=== PATIENT | female | born 1975 | race Caucasian/White ===

== ENCOUNTER 2018-04-09 17:05 | Emergency (ER) | payer OTHER ==
[~2018-04-09] VITALS: Ht 175.3 cm; Wt 59.0 kg
[~2018-04-09 17:05] MED LIST: ALBU4 PO; LORA.5 PO; PANT40 PO; TRAZ100 PO
[2018-04-09] MEDS ORDERED: Keflex500 MG PO (19:49)
[2018-04-09] MEDS ORDERED: Norco 5-325 Ta1 EACH PO (19:49)
== END 2018-04-09 21:10 | disposition home or self-care (01) ==
LOC: ER 17:05
DX: S61.224A Laceration with foreign body of right ring finger without damage to nail, initial encounter (principal); S61.511A Laceration without foreign body of right wrist, initial encounter; Z79.899 Other long term (current) drug therapy; Z88.8 Allergy status to other drugs, medicaments and biological substances; K21.9 Gastro-esophageal reflux disease without esophagitis; J45.909 Unspecified asthma, uncomplicated; F41.9 Anxiety disorder, unspecified; F17.200 Nicotine dependence, unspecified, uncomplicated; W25.XXXA Contact with sharp glass, initial encounter
CPT/HCPCS: 12001; 73130; 90471; 90714; 96372; 99283; J0696

== ENCOUNTER 2018-08-14 08:11 | Emergency (ER) | payer OTHER ==
[~2018-08-14] VITALS: Ht 175.3 cm; Wt 54.4 kg
[~2018-08-14 08:11] MED LIST changes: +Keflex500 MG PO; +Norco 5-325 Ta1 EACH PO
[2018-08-14 09:02] LABS: BASOPHILS ABSOLUTE AUTO 0.04 K/mm3 (0.00-0.23); BASOPHILS PERCENT AUTO 1 % (0-2); EOSINOPHILS PERCENT AUTO 1 % (0-6); Hematocrit 40.6 % (33.0-51.0); Hemoglobin 13.2 g/dL (11.5-16.0); IMMATURE GRAN ABSOLUTE AUTO 0.01 K/mm3 (0.00-0.10); IMMATURE GRAN PERCENT AUTO 0 % (0-1); LYMPHOCYTES ABSOLUTE AUTO 2.51 K/mm3 (0.84-5.20); LYMPHOCYTES PERCENT AUTO 36 % (21-46); MONOCYTES ABSOLUTE AUTO 0.53 K/mm3 (0.16-1.47); MONOCYTES PERCENT AUTO 8 % (4-13); Mean Corpuscular HGB 32.7 pg (26.0-34.0); Mean Corpuscular HGB Conc 32.5 g/dL (31.5-36.5); Mean Corpuscular Volume 101 fL (80-100); NEUTROPHILS ABSOLUTE AUTO 3.75 K/mm3 (1.96-9.15); NEUTROPHILS PERCENT AUTO 54 % (41-73); RDW Coefficient Variation 11.7 % (11.7-14.2); RDW Standard Deviation 43.8 fL (35.1-46.3); Red Blood Cell Count 4.04 M/mm3 (3.80-5.20); White Blood Cell Count 6.94 K/mm3 (4.00-11.30)
[2018-08-14 09:11] LABS: Mean Platelet Volume 10.7 fL (9.1-12.4); Platelet Count 155 K/mm3 (150-400)
[2018-08-14 09:21] LABS: Alanine Aminotransfer (ALT/SGP 26 U/L (12-78); Albumin, Blood 3.8 g/dL (3.4-5.0); Albumin/Globulin Ratio 1.2 (0.8-1.8); Alk Phos 49 U/L (50-136); Anion Gap 9 mmol/L (6-16); Aspartate Aminotrans (AST/SGOT 21 U/L (12-37); Bilirubin, Total 0.5 mg/dL (0.1-1.0); Blood Urea Nitrogen 11 mg/dL (8-24); Bun/Creatinine Ratio 16.6 (12.0-20.0); CO2, Blood 26 mmol/L (21-32); Calcium, Blood 8.8 mg/dL (8.5-10.1); Chloride, Blood 104 mmol/L (98-108); Creatinine, Blood 0.66 mg/dL (0.40-1.00); Globulin, Blood 3.3 g/dL (2.2-4.0); Glomerular Filtration Rate >60 (60-); Glucose, Blood 78 mg/dL (70-99); Sodium, Blood 139 mmol/L (136-145); Total Protein, Blood 7.1 g/dL (6.4-8.2)
[2018-08-14] MEDS ORDERED: Ultram50 MG PO (10:18)
[2018-08-14] MEDS ORDERED: Norco 5-325 Ta1 EACH PO (10:29)
== END 2018-08-14 10:32 | disposition home or self-care (01) ==
LOC: ER 08:11
PROVIDERS: Emergency Medicine
DX: K21.9 Gastro-esophageal reflux disease without esophagitis (principal); R10.13 Epigastric pain; F17.200 Nicotine dependence, unspecified, uncomplicated; Z79.899 Other long term (current) drug therapy
CPT/HCPCS: 36415; 76705; 80053; 81000; 83690; 85025; 96361; 96374; 96375; 99284-25; C9113; J2405; J3010; J7030

== ENCOUNTER → 2018-12-30 | Outpatient (CLI) | payer OTHER ==
[~2018-12-30] MED LIST changes: +Ultram50 MG PO
== END | disposition home or self-care (01) ==
LOC: LAB 19:27 → LAB SHORT 19:27
DX: N94.6 Dysmenorrhea, unspecified (principal); R10.2 Pelvic and perineal pain
CPT/HCPCS: 87070; 87205

== ENCOUNTER 2019-04-12 11:05 | Emergency (ER) | payer OTHER ==
[~2019-04-12] VITALS: Ht 175.3 cm; Wt 56.2 kg
[2019-04-12] MEDS ORDERED: PSEU120ER PO (11:44)
[2019-04-12] MEDS ORDERED: Amoxicillin500 MG PO (11:44)
== END 2019-04-12 11:52 | disposition home or self-care (01) ==
LOC: ER 11:05
DX: H66.91 Otitis media, unspecified, right ear (principal); Z88.8 Allergy status to other drugs, medicaments and biological substances; Z79.899 Other long term (current) drug therapy; K21.9 Gastro-esophageal reflux disease without esophagitis; F17.200 Nicotine dependence, unspecified, uncomplicated

== ENCOUNTER 2020-04-02 03:35 | Emergency (ER) | payer OTHER ==
[~2020-04-02 03:35] MED LIST changes: +Amoxicillin500 MG PO; +PSEU120ER PO; +Percocet 5-3251 EACH PO
[2020-04-02] MEDS ORDERED: PRED10 PO (04:06)
== END 2020-04-02 04:09 | disposition home or self-care (01) ==
DX: R21 Rash and other nonspecific skin eruption (principal); F17.210 Nicotine dependence, cigarettes, uncomplicated; Z91.02 Food additives allergy status

== ENCOUNTER → 2020-04-21 | Outpatient (CLI) | payer OTHER ==
[~2020-04-21] MED LIST changes: +PRED10 PO
== END | disposition home or self-care (01) ==
LOC: LAB 11:10 → LAB SHORT 11:10
DX: R10.11 Right upper quadrant pain (principal)
CPT/HCPCS: 87338

== ENCOUNTER 2021-08-10 08:34 | Emergency (ER) | payer OTHER ==
[~2021-08-10] VITALS: Ht 175.3 cm; Wt 47.6 kg
[2021-08-10] MEDS ORDERED: KETO10 PO (09:57)
[2021-08-10] MEDS ORDERED: IBUP800 PO (09:57)
[2021-08-10] MEDS ORDERED: Robaxin750 MG PO (09:57)
== END 2021-08-10 10:18 | disposition home or self-care (01) ==
LOC: ER 08:34
DX: S16.1XXA Strain of muscle, fascia and tendon at neck level, initial encounter (principal); Z91.018 Allergy to other foods; F41.9 Anxiety disorder, unspecified; F17.210 Nicotine dependence, cigarettes, uncomplicated; X58.XXXA Exposure to other specified factors, initial encounter
CPT/HCPCS: 93005; 93010; 96372; 99283-25; A9270; J1885

== ENCOUNTER 2021-08-26 05:57 | Emergency (ER) | payer OTHER ==
[~2021-08-26] VITALS: Ht 170.2 cm; Wt 48.5 kg
[~2021-08-26 05:57] MED LIST changes: +IBUP800 PO; +KETO10 PO; +Robaxin750 MG PO
== END 2021-08-26 07:57 | disposition home or self-care (01) ==
LOC: ER 05:57
DX: M94.0 Chondrocostal junction syndrome [Tietze] (principal); F17.210 Nicotine dependence, cigarettes, uncomplicated; Z91.018 Allergy to other foods
CPT/HCPCS: 99285

== ENCOUNTER 2023-02-25 20:21 | Emergency (ER) | payer OTHER ==
[~2023-02-25] VITALS: Ht 175.3 cm; Wt 50.8 kg
[2023-02-25] MEDS ORDERED: PANT40 (20:30)
== END 2023-02-26 00:11 | disposition home or self-care (01) ==
LOC: ER 20:21
DX: S01.312A Laceration without foreign body of left ear, initial encounter (principal); W18.00XA Striking against unspecified object with subsequent fall, initial encounter; Z88.8 Allergy status to other drugs, medicaments and biological substances; Z79.899 Other long term (current) drug therapy; F17.210 Nicotine dependence, cigarettes, uncomplicated
CPT/HCPCS: 12002; 90471; 90714; 99283-25

== ENCOUNTER 2024-01-06 18:48 | Emergency (ER) | payer BC ==
[~2024-01-06] VITALS: Ht 175.3 cm; Wt 54.0 kg
[~2024-01-06 18:48] MED LIST changes: +PANT40
[2024-01-06 19:17] VITALS: BP 135/111
== END 2024-01-06 19:25 | disposition home or self-care (01) ==
LOC: ER 18:48
DX: S61.011A Laceration without foreign body of right thumb without damage to nail, initial encounter (principal); F17.210 Nicotine dependence, cigarettes, uncomplicated; M79.7 Fibromyalgia; Z91.018 Allergy to other foods; W27.4XXA Contact with kitchen utensil, initial encounter; Y93.89 Activity, other specified
CPT/HCPCS: 99282

== ENCOUNTER → 2025-10-19 | Outpatient (CLI) | payer OTHER ==
[2025-10-19 17:48] LABS: BASOPHILS ABSOLUTE AUTO 0.07 K/mm3 (0.00-0.23); BASOPHILS PERCENT AUTO 1 % (0-2); EOSINOPHILS ABSOLUTE AUTO 0.15 K/mm3 (0.00-0.68); EOSINOPHILS PERCENT AUTO 1 % (0-6); Hematocrit 41.7 % (33.0-51.0); Hemoglobin 14.2 g/dL (11.5-16.0); IMMATURE GRAN ABSOLUTE AUTO 0.02 K/mm3 (0.00-0.10); IMMATURE GRAN PERCENT AUTO 0 % (0-1); LYMPHOCYTES ABSOLUTE AUTO 2.96 K/mm3 (0.84-5.20); LYMPHOCYTES PERCENT AUTO 27 % (21-46); MONOCYTES ABSOLUTE AUTO 0.71 K/mm3 (0.16-1.47); MONOCYTES PERCENT AUTO 6 % (4-13); Mean Corpuscular HGB Conc 34.1 g/dL (31.5-36.5); Mean Corpuscular Volume 99 fL (80-100); NEUTROPHILS ABSOLUTE AUTO 7.27 K/mm3 (1.96-9.15); NEUTROPHILS PERCENT AUTO 65 % (41-73); NRBC ABSOLUTE 0.00 K/mm3 (0.00-0.02); NRBC Auto 0.0 /100 WBC (0.0-0.2); Platelet Count 253 K/mm3 (150-400); RDW Coefficient Variation 11.3 % (11.7-14.2); RDW Standard Deviation 40.7 fL (35.1-46.3)
[2025-10-20 08:35] LABS: Alanine Aminotransfer (ALT/SGP 38 U/L (12-78); Albumin, Blood 4.4 g/dL (3.4-5.0); Albumin/Globulin Ratio 1.6 (0.8-1.8); Anion Gap 10 mmol/L (3-11); Aspartate Aminotrans (AST/SGOT 42 U/L (12-37); Bilirubin, Total 0.5 mg/dL (0.1-1.0); Blood Urea Nitrogen 13 mg/dL (8-24); CHOL/HDL RATIO 2.5; CO2, Blood 28 mmol/L (21-32); Calcium, Blood 9.8 mg/dL (8.5-10.1); Chloride, Blood 104 mmol/L (98-108); Cholesterol 252 mg/dL (50-200); Creatinine, Blood 0.53 mg/dL (0.40-1.00); Globulin, Blood 2.8 g/dL (2.2-4.0); Glucose, Blood 88 mg/dL (70-99); HDL Cholesterol 101 mg/dL (>39); LDL/HDL RATIO 1.4; Low Density Lipoprotein Chol 138 mg/dL (0-110); Potassium, Blood 3.9 mmol/L (3.5-5.5); Sodium, Blood 138 mmol/L (136-145); Thyroid Stimulating Hormone 0.959 uIU/mL (0.360-4.800); Total Protein, Blood 7.2 g/dL (6.4-8.2); Triglycerides 64 mg/dL (30-160); Very Low Density Lipoprot Chol 12 mg/dL (6-32)
== END | disposition home or self-care (01) ==
LOC: LAB 16:10 → LAB SHORT 16:10
PROVIDERS: Student in an Organized Health Care Education/Training Program
DX: F10.10 Alcohol abuse, uncomplicated (principal); Z79.899 Other long term (current) drug therapy
CPT/HCPCS: 80053; 80061; 84443; 85025

== ENCOUNTER 2025-10-28 06:39 | Emergency (ER) | payer OTHER ==
[~2025-10-28] VITALS: Ht 175.3 cm; Wt 51.7 kg
[2025-10-28] MEDS ORDERED: NS 1,000 ML IV SCH (07:35)
[2025-10-28] MEDS ORDERED: HYDROmorphone HCl/Pf 1MG SYR IV ONE (07:35)
[2025-10-28] MEDS ORDERED: Ondansetron HCl 2 MG / ML 2ML Vial IV ONE (07:35)
[2025-10-28 08:01] LABS: BASOPHILS ABSOLUTE AUTO 0.03 K/mm3 (0.00-0.23); BASOPHILS PERCENT AUTO 0 % (0-2); EOSINOPHILS ABSOLUTE AUTO 0.11 K/mm3 (0.00-0.68); EOSINOPHILS PERCENT AUTO 1 % (0-6); Hematocrit 39.1 % (33.0-51.0); Hemoglobin 13.5 g/dL (11.5-16.0); IMMATURE GRAN ABSOLUTE AUTO 0.05 K/mm3 (0.00-0.10); IMMATURE GRAN PERCENT AUTO 0 % (0-1); LYMPHOCYTES ABSOLUTE AUTO 2.14 K/mm3 (0.84-5.20); LYMPHOCYTES PERCENT AUTO 16 % (21-46); MONOCYTES ABSOLUTE AUTO 1.03 K/mm3 (0.16-1.47); MONOCYTES PERCENT AUTO 8 % (4-13); Mean Corpuscular HGB Conc 34.5 g/dL (31.5-36.5); Mean Corpuscular Volume 96 fL (80-100); NEUTROPHILS ABSOLUTE AUTO 9.71 K/mm3 (1.96-9.15); NEUTROPHILS PERCENT AUTO 74 % (41-73); NRBC ABSOLUTE 0.00 K/mm3 (0.00-0.02); NRBC Auto 0.0 /100 WBC (0.0-0.2); Platelet Count 203 K/mm3 (150-400); RDW Coefficient Variation 11.3 % (11.7-14.2); RDW Standard Deviation 40.2 fL (35.1-46.3)
[2025-10-28 08:25] LABS: Alanine Aminotransfer (ALT/SGP 42.0 U/L (12-78); Albumin, Blood 4.3 g/dL (3.4-5.0); Albumin/Globulin Ratio 1.5 (0.8-1.8); Anion Gap 10.0 mmol/L (3-11); Aspartate Aminotrans (AST/SGOT 59.0 U/L (12-37); Bilirubin, Total 1.0 mg/dL (0.1-1.0); Blood Urea Nitrogen 16.0 mg/dL (8-24); CO2, Blood 28.0 mmol/L (21-32); Calcium, Blood 9.5 mg/dL (8.5-10.1); Chloride, Blood 100.0 mmol/L (98-108); Creatinine, Blood 0.52 mg/dL (0.40-1.00); Globulin, Blood 2.8 g/dL (2.2-4.0); Glucose, Blood 150.0 mg/dL (70-99); Potassium, Blood 3.3 mmol/L (3.5-5.5); Sodium, Blood 135.0 mmol/L (136-145); Total Protein, Blood 7.1 g/dL (6.4-8.2)
[2025-10-28 09:25] LABS: Source, Urine Clean Catch
[2025-10-28 09:36] LABS: Bilirubin, Urine Neg (Neg); Color, Urine Yellow (P-Yellow); Glucose Qualitative, Urine Neg (Neg); Ketones, Urine 1+ (Neg); Leukocyte Esterase, Urine 1+ (Neg); Protein, Urine 2+ (Neg); Specific Gravity, Urine 1.015 (1.003-1.022); Urobilinogen, Urine 1+ (Normal)
[2025-10-28 09:53] VITALS: BP 122/84
[2025-10-28 09:58] LABS: Red Blood Cells, Urine 0-2 /hpf (0-2)
[2025-10-28] MEDS ORDERED: OXYC5 PO (10:31)
== END 2025-10-28 10:40 | disposition home or self-care (01) ==
LOC: ER 06:39
PROVIDERS: Emergency Medicine
DX: R10.9 Unspecified abdominal pain (principal); F17.200 Nicotine dependence, unspecified, uncomplicated; Z88.8 Allergy status to other drugs, medicaments and biological substances
CPT/HCPCS: 74177; 80053; 81001; 83690; 85025; 87086; 96361; 96374-59; 96375; 99284-25; J1171; J2405; J7030; Q9967

== ENCOUNTER → 2025-11-15 | Outpatient (CLI) | payer OTHER ==
[~2025-11-15] MED LIST changes: +OXYC5 PO
[2025-11-16 18:07] LABS: RHEUMATOID FACTOR <10 IU/mL (0-14)
[2025-11-17 13:07] LABS: ANTI-NUCLEAR AB ANA,IGG ELISA None Detected (None Detected)
== END ==
LOC: LAB 11:30 → LAB SHORT 11:30
PROVIDERS: Student in an Organized Health Care Education/Training Program
DX: L40.0 Psoriasis vulgaris (principal)
CPT/HCPCS: 85651; 86038; 86140; 86431